=== PATIENT | male | born 1990 | race Asian ===

== ENCOUNTER 2020-03-29 20:14 | Emergency (ER) | payer MEDICAID ==
[~2020-03-29] VITALS: Ht 165.1 cm; Wt 77.0 kg
[~2020-03-29 20:14] MED LIST: LIDOcaine 1% W/epiNEPHrine 1:200,000 10ml vial ONE
[2020-03-29 20:33] VITALS: BP 132/75
== END 2020-03-29 23:27 | disposition home or self-care (01) ==
LOC: ER 20:16
DX: S81.811A Laceration without foreign body, right lower leg, initial encounter (principal); W45.8XXA Other foreign body or object entering through skin, initial encounter; Y93.89 Activity, other specified; Y92.89 Other specified places as the place of occurrence of the external cause; Y99.8 Other external cause status
CPT/HCPCS: 12001; 99282